=== PATIENT | male | born 1950 | race Caucasian/White ===

== ENCOUNTER 2023-06-21 09:05 | Emergency (ER) | payer MEDICARE, OTHER, SELFPAY ==
[2023-06-21 09:10] VITALS: BP 184/94
--- NOTE | 2023-06-21 09:54 | ED.GENMED ---
History of Present Illness
General
Chief Complaint: Skin Surface Trauma
Source: patient
Time Seen by Provider: 06/21/23 09:33
Travel History
Have you had any contact with someone who has COVID-19?: No
Do you have any symptoms of coronavirus? Fever > 100 degrees, chills, cough, shortness of breath, sore throat, loss of taste or smell, muscle aches, or headache?: No
History of Present Illness
History of Present Illness:
72-year-old male with past medical history of GERD and hyperlipidemia presented emergency department for evaluation after he excellently fell while on a ladder and to prevent him from falling to the ground grabbed onto a sink corner causing him to
sustain laceration to his right hand. Patient notes that he did not fall to the ground but came to the emergency department due to the after mentioned hand laceration. Patient is right-hand dominant, no other injuries were sustained and patient
believes this vaccine is up-to-date. No other concerns.
Past History
Past History
ED Past Medical History: GERD and Hypercholesterolemia
ED Past Surgical History: None
Social History
Tobacco: Non-smoker
Alcohol: None
Drug: None
Personal:
Living: with family
Employment: Employed
Review of Systems
Review of Systems
All Other Systems: ROS reviewed and negative except as documented in HPI and ROS
Phy Exam
Physical Exam
Physical Exam:
GENERAL: Alert , in no apparent distress
EYE: conjunctiva clear
Head: Normocephalic atraumatic
NECK: Supple,
ENT: mmm.
LUNGS: no acute respiratory distress
NEUROLOGICAL: Alert and oriented
SKIN: Warm and dry, patient has a V shaped laceration with a circular appearance at the top of the V shaped, superficial, measuring approximately 2 cm in total length
MUSCULOSKELETAL: well perfused. Patient has full range of motion of the right thumb including opposition. Sensation is grossly intact to light touch throughout the entirety of the right upper extremity.
PSYCH: Normal and appropriate interaction.
Scores
Heart Failure Risk
Heart Failure Risk Score: Not Applicable
Heart Score for Chest Pain Patients
STEMI patient?: Not applicable
Withdrawal Assessment of Alcohol
Withdrawal Assessment Completed?: Not applicable
Course
Vital Signs
Initial and Last Documented VS:
Initial Vital Signs
Temp Pulse Resp BP Pulse Ox
97.7 F 60 16 184/94 99
06/21/23 09:10 06/21/23 09:10 06/21/23 09:10 06/21/23 09:10 06/21/23 09:10
Last Documented Vital Signs
Temp Pulse Resp BP Pulse Ox
97.7 F 60 16 184/94 99
06/21/23 09:10 06/21/23 09:10 06/21/23 09:10 06/21/23 09:10 06/21/23 09:10
Procedures
Laceration Closure
Right Hand:
Status of Wound: clean
Size of Wound in cm: 2
Description of Wound Edges: sharp
Preparation: cleaned with saline
Anesthesia: 1% Lidocaine
Revision/Debridement: routine- no revision
Type of Closure: single layer closure
Skin Closure Material: 5-0 nylon
Number of sutures: 9
Additional information:
The circular area of the laceration was left open as this could not be approximated and was very superficial
MDM/Problems Addressed
MDM/Problems Addressed:
72-year-old male presenting the emergency department for evaluation of right hand laceration. Laceration repaired as above. Suture removal 10 to 12 days. A dressing with bacitracin was placed. Patient and family were advised on wound care.
Aware of return precautions emergency department. Otherwise stable for discharge home.
*Pulse Oximetry
Patient hypoxic: no
*Critical Care Note
Total Time (30-74mins, 75-104mins- exclusive of procedures): Not Applicable
ED Attending Note
-
Portions of this chart may have been created with voice recognition software.� Occasional wrong word or��sound alike� substitutions may have occurred due to the inherent limitations of voice recognition software.
Discharge Plan
Departure
Patient Disposition: Home (Routine Discharge)
Date of Disposition: 06/21/23
Time of Disposition: 09:55
Patient with high blood pressure during this ER visit?: Yes
Discharge Problem:
Laceration of hand, right
Instructions: Laceration Repair With Stitches (DC)
Activity Restrictions/Additional Instructions:
Suture removal in 10-12 days
Interventions
Interventions:
*Risk Screen - Suicide Last Done: 06/21/23 09:33
*General Assessment Last Done: 06/21/23 09:33
*Neglect/Abuse Screening Last Done: 06/21/23 09:33
ED- Fall Risk Assessment Last Done: 06/21/23 09:33
*ED COVID-19 Vaccine History Last Done: 06/21/23 09:16
*Nursing Disposition Last Done: 06/21/23 10:04
ED-Skin Assessment Last Done: 06/21/23 09:33
--- NOTE | 2023-06-21 10:04 | EDRN ---
Reviewed discharge instructions with patient. Verbalized understanding. Ambulated with steady gait to the lobby.
== END 2023-06-21 10:05 | disposition home or self-care (01) ==
LOC: EMR 09:05
PROVIDERS: EMERGENCY PHYSICIAN Student in an Organized Health Care Education/Training Program; FAMILY PHYSICIAN Family Medicine
DX: S61.411A Laceration without foreign body of right hand, initial encounter (principal); W11.XXXA Fall on and from ladder, initial encounter; R03.0 Elevated blood-pressure reading, without diagnosis of hypertension
CPT/HCPCS: 99282; 12001

== ENCOUNTER → 2024-02-01 06:27 | Day surgery (SDC) | payer MEDICARE, OTHER, SELFPAY | LOC: GI 06:27 | PROVIDERS: ATTENDING PHYSICIAN Internal Medicine Gastroenterology | DX: Z12.11 Encounter for screening for malignant neoplasm of colon (principal); R12 Heartburn; K44.9 Diaphragmatic hernia without obstruction or gangrene; K22.89 Other specified disease of esophagus; K31.89 Other diseases of stomach and duodenum; K26.9 Duodenal ulcer, unspecified as acute or chronic, without hemorrhage or perforation; D12.5 Benign neoplasm of sigmoid colon; D12.3 Benign neoplasm of transverse colon; D12.0 Benign neoplasm of cecum; K63.5 Polyp of colon; K29.50 Unspecified chronic gastritis without bleeding; K22.70 Barrett's esophagus without dysplasia; R93.3 Abnormal findings on diagnostic imaging of other parts of digestive tract; K64.0 First degree hemorrhoids | CPT/HCPCS: 45385; 45380; 45381; 43239; 88305; 88342 ==

== ENCOUNTER 2024-05-09 06:11 | Day surgery (SDC) | payer MEDICARE, OTHER, SELFPAY ==
[2024-05-09 09:15] VITALS: BP 159/87; BMI 21.4
[2024-05-09 09:23] VITALS: BMI 21.4
[2024-05-09 12:26] VITALS: BP 126/69
[2024-05-09 12:30] VITALS: BP 120/84
[2024-05-09 12:45] VITALS: BP 138/82
== END 2024-05-09 12:56 | disposition home or self-care (01) ==
LOC: SDS 06:11
PROVIDERS: Internal Medicine Gastroenterology; ATTENDING PHYSICIAN Internal Medicine Gastroenterology
PROC: 0DBL8ZX Excision of Transverse Colon, Via Natural or Artificial Opening Endoscopic, Diagnostic (ICD-10-PCS; 2024-05-09)
DX: Z09 Encounter for follow-up examination after completed treatment for conditions other than malignant neoplasm (principal); Z86.0100 Personal history of colon polyps, unspecified; K64.0 First degree hemorrhoids; D12.3 Benign neoplasm of transverse colon; K63.89 Other specified diseases of intestine
CPT/HCPCS: 45390; 45380; 88305

== ENCOUNTER 2024-11-22 06:19 | Day surgery (SDC) | payer MEDICARE, OTHER, SELFPAY | END 2024-11-22 12:04 | disposition home or self-care (01) | LOC: GI 06:19 | PROVIDERS: ATTENDING PHYSICIAN Internal Medicine Gastroenterology | DX: Z12.11 Encounter for screening for malignant neoplasm of colon (principal); D12.0 Benign neoplasm of cecum; K63.5 Polyp of colon; K63.89 Other specified diseases of intestine; K64.9 Unspecified hemorrhoids; K56.2 Volvulus; Q43.8 Other specified congenital malformations of intestine; Z98.890 Other specified postprocedural states; Z86.0100 Personal history of colon polyps, unspecified | CPT/HCPCS: 45380; 88305 ==